=== PATIENT | male | born 1970 | race Caucasian/White ===

== ENCOUNTER 2017-03-10 16:41 | Emergency (ER) | payer BC ==
[~2017-03-10] VITALS: Ht 180.3 cm; Wt 86.5 kg
[~2017-03-10 16:41] MED LIST: ACETAZOLAMIDE500 MG PO; BENTYL10 MG PO; DILAUDID2 MG PO; FIBER SELECT G1 EACH PO; GLUCOSAMINE; MEDROL DOSEPAK4 MG PO; METAMUCIL POWD798 GM PO; NOHOMEMEDS; PEN-VEE K,VEET500 MG PO; PERCOCET 7.51 TABLET PO; PROMETHAZINE HC25 M1 PO; TOPAMAX25 MG PO; VIT D; ZOFRAN ODT4 MG PO; [UNRECOGNIZED DRUG - OTHER]
[2017-03-10 19:21] VITALS: BP 145/92
[2017-03-11] MEDS ORDERED: AUGMENTIN875 MG PO (01:11)
[2017-03-11] MEDS ORDERED: FIORICET 50-301 EACH PO (01:11)
== END 2017-03-10 19:23 | disposition home or self-care (01) ==
LOC: EME 16:41
DX: G43.909 Migraine, unspecified, not intractable, without status migrainosus (principal); F17.200 Nicotine dependence, unspecified, uncomplicated; Z85.71 Personal history of Hodgkin lymphoma; Z98.890 Other specified postprocedural states
CPT/HCPCS: 99281; 99284; J1100; J1200; J1885; J2765; J7030

== ENCOUNTER 2017-03-10 22:42 | Emergency (ER) | payer BC ==
[~2017-03-10] VITALS: Ht 180.3 cm; Wt 89.0 kg
[2017-03-10 23:36] LABS: HEMATOCRIT 43.5 % (38.0-50.0); MCH 31.2 PG (29.0-34.0); MCHC 34.3 G/DL (30.0-36.0); MEAN PLAT.VOLUME 9.9 uM^3 (9.0-12.4); PLATELET COUNT 253 K/uL (156-360); RBC DIS.WIDTH-CV 12.4 % (11.8-14.6); RBC DIS.WIDTH-SD 41.8 % (39-53); RED BLOOD COUNT 4.78 M/uL (4.00-5.50); WHITE BLOOD COUNT 5.9 K/uL (4.1-10.2)
[2017-03-10 23:47] LABS: CHLORIDE 108 mEq/L (99-109); SODIUM 139 mEq/L (136-147)
[2017-03-10 23:49] LABS: GLUCOSE 153 mg/dL (70-99)
[2017-03-10 23:50] LABS: ANION GAP 9 MEQ/L (2-14)
[2017-03-10 23:53] LABS: GFR ESTIMATE (CALCULATED) > 59 mL/min/; UREA NITROGEN (BUN) 12 mg/dL (9-23)
[2017-03-11] MEDS ORDERED: FIORICET 50-301 EACH PO (01:11)
[2017-03-11] MEDS ORDERED: AUGMENTIN875 MG PO (01:11)
[2017-03-11 01:38] VITALS: BP 137/81
== END 2017-03-11 01:39 | disposition home or self-care (01) ==
LOC: EME 22:42
PROVIDERS: Nurse Practitioner Family
DX: J01.90 Acute sinusitis, unspecified (principal); G91.9 Hydrocephalus, unspecified; Z85.71 Personal history of Hodgkin lymphoma; F17.200 Nicotine dependence, unspecified, uncomplicated
CPT/HCPCS: 70450; 80048; 85027; 99281; 99285; J1200; J1885; J2765; J7030

== ENCOUNTER 2017-03-12 16:35 | Observation (INO) | payer BC ==
[~2017-03-12] VITALS: Ht 180.3 cm; Wt 89.2 kg
[~2017-03-12 16:35] MED LIST changes: +AUGMENTIN875 MG PO; +FIORICET 50-301 EACH PO
[2017-03-12 19:48] LABS: EOSINOPHIL (%) 1.6 % (0-5); EOSINOPHIL COUNT 0.1 K/uL (0-0.3); HEMATOCRIT 42.4 % (38.0-50.0); IMMATURE GRANULOCYTE (%) 0.3 % (0.0-0.7); INSTRUMENT ABS NEUTROPHIL CT 4.5 K/uL; LYMPHOCYTE COUNT 2.1 K/uL (1.0-2.8); MCH 31.6 PG (29.0-34.0); MCHC 34.4 G/DL (30.0-36.0); MCV 91.8 FL (86-99); MEAN PLAT.VOLUME 9.2 uM^3 (9.0-12.4); MONOCYTE (%) 8.7 % (3-12); MONOCYTE COUNT 0.6 K/uL (0-0.8); NEUTROPHIL (%) 60.7 % (45-76); NEUTROPHIL COUNT 4.5 K/uL (1.8-6.4); PLATELET COUNT 226 K/uL (156-360); RBC DIS.WIDTH-CV 12.6 % (11.8-14.6); RBC DIS.WIDTH-SD 42.3 % (39-53); RED BLOOD COUNT 4.62 M/uL (4.00-5.50); WHITE BLOOD COUNT 7.3 K/uL (4.1-10.2)
[2017-03-12 19:56] LABS: CHLORIDE 109 mEq/L (99-109); POTASSIUM 3.5 mEq/L (3.7-5.4); SODIUM 141 mEq/L (136-147)
[2017-03-12 19:59] LABS: GLUCOSE 94 mg/dL (70-99)
[2017-03-12 20:00] LABS: ANION GAP 6 MEQ/L (2-14); TOTAL BILIRUBIN 0.4 mg/dL (0.0-1.0)
[2017-03-12 20:02] LABS: ALKALINE PHOSPHATASE 74 IU/L (3-129); GFR ESTIMATE (CALCULATED) > 59 mL/min/
[2017-03-12 20:03] LABS: UREA NITROGEN (BUN) 10 mg/dL (9-23)
[2017-03-13 01:54] VITALS: BP 142/80
[2017-03-13 08:28] VITALS: BP 138/77
[2017-03-13 10:07] LABS: ADD MIUA? NO; BILIRUBIN NEGATIVE; BLOOD NEGATIVE; COLOR YELLOW ((YELLOW)); GLUCOSE (STRIP) NEGATIVE; KETONES NEGATIVE; LEUKOCYTES NEGATIVE; NITRITE NEGATIVE; PROTEIN (STRIP) NEGATIVE; SPECIFIC GRAVITY 1.011 (1.000-1.030); UCUL ADDED? NO; UROBILINOGEN 0.2 MG/DL (0.2-1.0)
[2017-03-13] MEDS ORDERED: FIORICET 50-301 EACH PO (10:39)
[2017-03-13 11:46] VITALS: BP 123/74
[2017-03-13] MEDS ORDERED: ACETAZOLAMIDE500 MG PO (14:58)
== END 2017-03-13 16:20 | disposition home or self-care (01) ==
LOC: EME 16:35 → EDOF 23:46 → 5WEST 23:46 → EDOF 23:46 → ENRESERV 23:47 → 5WEST 03-13 01:25
PROVIDERS: Emergency Medicine; Hospitalist
DX: G91.1 Obstructive hydrocephalus (principal); Q04.6 Congenital cerebral cysts; Q03.0 Malformations of aqueduct of Sylvius; G43.909 Migraine, unspecified, not intractable, without status migrainosus; J32.9 Chronic sinusitis, unspecified; F17.200 Nicotine dependence, unspecified, uncomplicated
CPT/HCPCS: 80053; 81003; 85025; 99281; 99285; G0378; J0780; J1120; J1170; J1200; J1644; J2270; J7040; J7512